=== PATIENT | male | born 1965 | race Caucasian/White ===

== ENCOUNTER 2022-11-16 16:44 | Emergency (ER) | payer BC, SELFPAY ==
--- NOTE | ~2022-11-16 | XR_ITS ---
EXAM: XR finger 5th LT min 2V DATE: 11/16/2022 18:03 HISTORY: Fall today, pain just to Left 5th digit. Deformity . COMPARISON: None available. FINDINGS: Normal mineralization. Dislocation of the fifth PIP joint, with one shaft width lateral an d posterior displacement. Tiny triangular ossific fragment noted anterior to the distal aspect of the fifth proximal phalange, may represent a volar plate avulsion fracture fragment. No lytic or blastic lesion. Joint spaces and physes are maintained. No erosion or periosteal change. Soft tissues within normal limits. IMPRESSION: Fifth PIP joint dislocation. Possible volar plate avulsion fracture. Reviewed, dictated and finalized at location K. IMPRESSION: Fifth PIP joint dislocation. Possible volar plate avulsion fracture .
--- NOTE | ~2022-11-16 | XR_ITS ---
EXAM: XR finger 5th LT min 2V DATE: 11/16/2022 19:22 HISTORY: post reduction . COMPARISON: Same date at 5:56 PM. FINDINGS/IMPRESSION: Successful interval fifth PIP joint reduction. A volar plate avulsion fracture o ff the proximal aspect of the left fifth middle phalange is confirmed. Reviewed, dictated and finalized at location K.
[2022-11-16 17:30] VITALS: BP 167/85; PULSE 84; RESP 15; TEMP 37.1; O2SAT 96
[2022-11-16 17:46] VITALS: BP 165/97; PULSE 89; RESP 18; O2SAT 97
[2022-11-16] MEDS: TETANUS,DIPHTHERIA,AC PERTUSSIS ADULT (0.5 ML) BOOSTRIX IM (18:07)
--- NOTE | 2022-11-16 18:17 | ED.UPPEXIN ---
HPI - Extremity Injury (Upper) General Chief Complaint: Extremity Injury, Upper <Hanny Rosario PA-C - Last Filed: 11/16/22 23:00> Stated Complaint: Left pinky injury <LA Prakash Last Filed: 11/16/22 23:00> Time Seen by Provider: 11/16/22 17:48 <LA Prakash Last Filed: 11/16/22 23:00> Source: patient <LA Prakash Last Filed: 11/16/22 23:00> Mode of arrival: ambulatory <LA Prakash Last Filed: 11/16/22 23:00> Limitations: no limitations <LA Prakash Last Filed: 11/16/22 23:00> History of Present Illness HPI narrative: Patient is a 57-year-old male who presents to the ED with report of left fifth digit injury. Patient reports he was walking on the sidewalk when he slipped on the curb and fell out into the street, catching himself with his left arm and hand. He sustained abrasions to his left elbow and has a notable deformity to his left fifth digit. Sustained a small laceration to the proximal digit. He complains of pain to his left fifth digit, obvious deformity. He does report some numbness/tingling to the digit. Denies any other injuries. Denies head injury or LOC. Tetanus status unknown. <LA Prakash Last Filed: 11/16/22 23:00> Related Data Allergies/Adverse Reactions: Allergies Allergy/AdvReac Type Severity Reaction Status Date / Time No Known Allergies Allergy Verified 11/16/22 17:34 <LA Prakash Last Filed: 11/16/22 23:00> Review of Systems Review of Systems: CONSTITUTIONAL: Denies fever, chills, or sweats. MUSCULOSKELETAL: See HPI. NEUROLOGIC: See HPI. <LA Prakash Last Filed: 11/16/22 23:00> All systems reviewed & are unremarkable except as noted in HPI and below <Hanny Rosario PA-C - Last Filed: 11/16/22 23:00> Exam Narrative: GENERAL: Well appearing, well-nourished, non-toxic, in no acute distress. HEAD: Normocephalic, atraumatic. NECK: Supple. No adenopathy, no masses. RESPIRATORY: Airway patent, respirations nonlabored. Clear to auscultation bilaterally, no rales, rhonchi, wheezing. CARDIOVASCULAR: Regular rate and rhythm without murmurs, rubs, or gallops. Radial pulses 2+ and equal bilaterally. MUSCULOSKELETAL: Moves all extremities. Full range of motion of left elbow. Small abrasions noted to left elbow, no tenderness throughout left elbow joint. Obvious dislocation versus fracture deformity noted to left fifth digit, particularly at PIP joint. Small, few mm, laceration to medial surface of proximal phalange. No active bleeding. Distal capillary refill intact and brisk. Distal sharp touch sensation intact to digit. SKIN: Warm, dry, normal color. No rashes. NEURO: A&O X3. Speech clear. Cranial nerves II-XII grossly intact. Steady gait. No ataxic movements. PSYCHIATRIC: Appropriate mood and affect. Normal interaction. <Hanny Rosario PA-C - Last Filed: 11/16/22 23:00> Course PHOTOGRAPH INSPECTOR/PA Physician Supervision For this patient encounter, I reviewed the PHOTOGRAPH INSPECTOR or PA documentation, treatment plan, and medical decision making and I had [id number] time with this patient. I performed all aspects of the MDM as documented. I was at bedside for the joint reduction. Patient tolerated without complication. He will follow-up with hand surgery. <Erika Mon MD - Last Filed: 11/24/22 19:05> Vital Signs Vital signs: Vital Signs Temperature 98.7 F 11/16/22 17:30 Pulse Rate 84 11/16/22 17:30 Respiratory Rate 15 11/16/22 17:30 Blood Pressure 167/85 H 11/16/22 17:30 Pulse Oximetry 96 11/16/22 17:30 Oxygen Delivery Room Air 11/16/22 17:30 Temperature 98.7 F 11/16/22 17:30 Pulse Rate 89 11/16/22 17:46 Respiratory Rate 18 11/16/22 17:46 Blood Pressure 165/97 H 11/16/22 17:46 Pulse Oximetry 97 11/16/22 17:46 Oxygen Delivery Room Air 11/16/22 17:30
== END 2022-11-16 20:49 | disposition home or self-care (01) ==
PROVIDERS: Emergency Provider Physician Assistant
DX: S62.627A Displaced fracture of middle phalanx of left little finger, initial encounter for closed fracture (principal); Z23 Encounter for immunization; W10.1XXA Fall (on)(from) sidewalk curb, initial encounter
CPT/HCPCS: 26725; 26770; 73140; 90471; 90715; 99285